=== PATIENT | female | born 1965 | race Caucasian/White ===

== ENCOUNTER → 2022-10-09 | Outpatient (CLI) | payer OTHER ==
--- NOTE | 2022-10-23 09:38 | MM ---
Reason for Exam: Screening (asymptomatic). Last mammogram was performed 9 year(s) and 1 month(s) ago. Patient History: Menarche at age 12. First Full-Term at age 28. Late child-bearing (after 28). Postmenopausal. Patient has history of breast feeding. Patient used Hormonal Contraceptives for 10 years. 07/29/2001, Bilateral Implants. Maternal grandmother had breast cancer at or over age 50. Risk Values: Anai 5 year model risk: 1.7%. NCI Lifetime model risk: 9.4%. Prior Study Comparison: 09/08/2013 Bilateral Screening Mammogram, [facility]. 09/24/2013 Right Diagnostic Mammogram, [facility]. Tissue Density: The breast tissue is heterogeneously dense. This may lower the sensitivity of mammography. Findings: Analyzed By CAD. Bilateral breast implants. There is no suspicious group of microcalcifications or new suspicious mass in either breast. Overall Assessment: Negative, BI-RAD 1 Management: Screening Mammogram of both breasts in [address] [facility] will attempt to contact patient to return for supplemental views and ultrasound if indicated. Patient should continue monthly self-breast exams. A clinical breast exam by your physician is recommended on an annual basis. This exam should not preclude additional follow-up of suspicious palpable abnormalities. Note on Anai scores and lifetime risk: 1. A Anai score greater than 3% is considered moderate risk. If this is the case, consider specialist referral to assess eligibility for a risk reducing agent. 2. If overall lifetime risk for the development of breast cancer is 20% or higher, the patient may qualify for future screening with alternating mammogram and breast MRI. Electronically signed and approved by: Brice Issa DO
== END | disposition home or self-care (01) ==
LOC: RADMAMWWP 13:34
PROVIDERS: ATTEND Obstetrics & Gynecology
DX: Z12.31 Encounter for screening mammogram for malignant neoplasm of breast (principal); Z78.0 Asymptomatic menopausal state; Z80.3 Family history of malignant neoplasm of breast
CPT/HCPCS: 77063; 77067